=== PATIENT | female | born 1935 | race Caucasian/White ===

== ENCOUNTER 2016-09-27 21:08 | Emergency (ER) | payer OTHER ==
[~2016-09-27] VITALS: Ht 152.4 cm; Wt 54.4 kg
[2016-09-27 21:20] VITALS: BP 130/74
--- NOTE | 2016-09-27 22:00 | NUR ---
PT TAKEN TO BED 4
--- NOTE | 2016-09-27 22:22 | NUR ---
81Y/F PATIENT PRESENTS TO ED WITH C/O LT. SHOULDER PAIN X 1 HRS . PT STATES SLIPPED FROM THE CAR AND LANDED ON LT. SIDE, C/O LT. SIDE PAIN . DENIES N/V/D; SKIN IS PINK/WARM/DRY; AAOX4 WITH EVEN AND STEADY GAIT; LUNGS CLEAR BL; HR EVEN AND REGULAR; PT DENIES ANY FEVER, CP, SOB, OR COUGH AT THIS TIME; PATIENT STATES PAIN OF 7/10 AT THIS TIME; VSS; PATIENT POSITIONED FOR COMFORT; HOB ELEVATED; BEDRAILS UP X2; BED DOWN. ER MD MADE AWARE OF PT STATUS.
--- NOTE | 2016-09-27 22:25 | NUR ---
X-Ray at bedside.
--- NOTE | 2016-09-27 22:28 | NUR ---
Dr. Sarmiento evaluating patient at bedside.
[2016-09-27] MEDS ORDERED: KETOROLAC 60 MG/2 ML VIAL IM ONE (22:45)
[2016-09-27 23:24] VITALS: BP 125/71
--- NOTE | 2016-09-27 23:24 | NUR ---
Patient discharged with v/s stable. Written and verbal after care instructions given and explained. Patient alert, oriented and verbalized understanding of instructions. Ambulatory with steady gait. All questions addressed prior to discharge. ID band removed. Patient advised to follow up with PMD. Rx of TRAMADOL 50 MG given. Patient educated on indication of medication including possible reaction and side effects. Opportunity to ask questions provided and answered.
== END 2016-09-27 23:24 | disposition home or self-care (01) ==
LOC: MED 21:08
DX: M19.012 Primary osteoarthritis, left shoulder (principal); E11.9 Type 2 diabetes mellitus without complications; I10 Essential (primary) hypertension
CPT/HCPCS: 73030; 96372; 99284; J1885; Q0092; 93005

== ENCOUNTER 2020-08-03 14:02 | Emergency (ER) | payer OTHER ==
[~2020-08-03] VITALS: Ht 149.9 cm; Wt 52.6 kg
[2020-08-03 14:09] VITALS: BP 138/95
--- NOTE | 2020-08-03 14:16 | NUR ---
SAMARA BRAN ([facility] [phone]
--- NOTE | 2020-08-03 14:17 | NUR ---
PT TAKEN TO BED 02 VIA WHEELCHAIR.
--- NOTE | 2020-08-03 14:19 | NUR ---
85 Y/O F BROUGHT IN FROM HOME WITH C/C OF RUQ ABDOMINAL PAIN X 2 DAYS. PT STATES RUQ PAIN 9/10, SHARP/INTERMITTENT THAT RADIATES TO HER LOWER BACK. PT ALSO STATES RIGHT LEG CRAMPING/STIFFNESS, (+) FREQUENT URINATION. PT DENIES DYSURIA, PAINFUL URINATION, NAUSEA/VOMITING, CHEST PAIN, SHORTNESS OF BREATH, HEADACHE, BLURRY VISION. PT STATES SHE TOOK T[place]NEOL AT 1000 THIS MORNING WITH LITTLE RELIEF. BOWEL SOUNDS ACTIVE X 4 QUADRANTS. PT STATES LAST BM 08/02 X 2, NORMAL/BROWN. PT PLACED ONTO HORSE RIDING COACH OR INSTRUCTOR, BED LOCKED IN LOWEST POSITION, SIDE RAILS X 1. MED HX: HTN, HYPERLIPDEMIA, DM2 MEDS: UNABLE TO OBTAIN ALLERGIES: SOPHIA INHIBITORS, DIFLOFENAC SX: APPENDECTOMY
--- NOTE | 2020-08-03 14:38 | NUR ---
DR. AVILES IS EVALUATING PATIENT AT BEDSIDE.
[2020-08-03] MEDS ORDERED: MORPHINE SULFATE 2 MG/ML SYR IVP ONE (14:45)
[2020-08-03] MEDS ORDERED: ONDANSETRON 4 MG/2 ML VIAL IVP ONE (14:45)
--- NOTE | 2020-08-03 14:45 | NUR ---
BLOOD SAMPLE COLLECTED VIA IV SITE AND HANDED TO BHASKAR JACOBSON IN ER.
--- NOTE | 2020-08-03 14:52 | NUR ---
PT TRANSPORTED TO RESTROOM VIA WHEELCHAIR FOR URINE SAMPLE. URINE SAMPLE DIP COLLECTED.
[2020-08-03 14:54] LABS: BASOPHILS # (AUTO) 0.1 K/uL (0.00-0.22); BASOPHILS % (AUTO) 1.1 % (0.0-2.0); EOSINOPHILS # (AUTO) 0.4 K/uL (0-0.4); EOSINOPHILS % (AUTO) 3.9 % (0.0-4.0); HEMOGLOBIN 13.5 g/dL (12.0-16.0); LYMPHOCYTES % (AUTO) 42.6 % (20.5-51.1); MEAN CORPUSCULAR HEMOGLOBIN 31 pg (27-31); MEAN CORPUSCULAR HGB CONC 34 g/dL (33-37); MEAN CORPUSCULAR VOLUME 90.7 fL (80-94); MONOCYTES % (AUTO) 11.2 % (1.7-9.3); NEUTROPHILS # (AUTO) 3.8 K/uL (1.8-7.7); NEUTROPHILS % (AUTO) 41.2 % (42.2-75.2); PLATELET COUNT (AUTO) 379 K/uL (140-450); RED BLOOD CELL COUNT(AUTO) 4.41 MIL/uL (4.20-5.40); RED CELL DISTRIBUTION WIDTH 13.7 % (11.6-13.7); WHITE BLOOD COUNT (AUTO) 9.3 K/uL (4.8-10.8)
--- NOTE | 2020-08-03 14:55 | NUR ---
PT ASSISTED BACK ONTO BED VIA WHEELCHAIR. PT PLACED BACK ONTO FISH HOUSEKEEPER. BED LOCKED IN LOWEST POSITION, SIDE RAILS X 1, CALL LIGHT IN REACH.
--- NOTE | 2020-08-03 15:10 | NUR ---
QUALITY CONTROL MANAGER AT BEDSIDE
--- NOTE | 2020-08-03 15:15 | NUR ---
URINE SAMPLE COLLECTED, WALKED TO LAB AND LEFT WITH BHASKAR JAEGER TECH.
--- NOTE | 2020-08-03 15:30 | NUR ---
PATIENT SITTING SEMI-FOWLERS IN POSITION OF COMFORT. CONCIERGE MANAGER IN PLACE, EQUAL CHEST RISE AND FALL, RESPIRATIONS EVEN/UNLABORED. BED LOCKED IN LOWEST POSITION, SIDE RAILS X 1, CALL LIGHT IN REACH.
[2020-08-03 15:31] LABS: APPEARANCE,URINE CLEAR (CLEAR); BILIRUBIN,URINE NEGATIVE (NEGATIVE); BLOOD, URINE NEGATIVE (NEGATIVE); COLOR,URINE YELLOW (YELLOW); LEUKOCYTE ESTERASE ,URINE 1+ (NEGATIVE); NITRITE, URINE NEGATIVE (NEGATIVE); UGLUCOSE NEGATIVE (NEGATIVE)
--- NOTE | 2020-08-03 15:38 | NUR ---
SPOKE WITH DAUGHTER ON PHONE TO TRANSLATE REGARDING CT OF ABDOMEN/PELVIS. PT SIGNATURE OBTAINED.
--- NOTE | 2020-08-03 15:40 | NUR ---
PATIENT STATES NO NAUSEA AND PAIN 6/10 AT THIS TIME. RETAIL ASSISTANT IN PLACE. BED LOCKED IN LOWEST POSITION, SIDE RAILS X1, CALL LIGHT IN REACH.
[2020-08-03 15:43] LABS: RBC,URINE 0-5 /HPF (0-5)
[2020-08-03 15:53] LABS: ALBUMIN 3.8 g/dL (3.4-5.0); ANION GAP 15.8 (8-16); ASPARTATE AMINOTRANSFERASE 25 U/L (15-37); CARBON DIOXIDE 25.5 mmol/L (21-32); CHLORIDE 106 mmol/L (98-107); CREATININE 1.6 mg/dL (0.6-1.3); GLUCOSE 98 mg/dL (74-106); LIPASE 142 U/L (73-393); POTASSIUM 4.3 mmol/L (3.5-5.1); SODIUM SERUM 143 mmol/L (136-145); TOTAL BILIRUBIN 0.3 mg/dL (0.0-1.0); UREA NITROGEN, BLOOD 16 mg/dL (7-18)
--- NOTE | 2020-08-03 16:20 | NUR ---
MANAGEMENT ACCOUNTS MANAGER AT BEDSIDE, NOTIFIED DR. BENITO OF ABNORMAL LABS AND MANAGEMENT ACCOUNTS MANAGER STATES SHE RECEIVED ORDER TO COMPLETE CT ABDOMEN/PELVIS WITHOUT CONTRAST.
--- NOTE | 2020-08-03 16:28 | NUR ---
PT PRESENTS WITH BOTH EYES CLOSED IN SEMI-FOWLERS POSITION OF COMFORT. PT REMAINS ON SWEATBAND PERFORATOR. EQUAL CHEST RISE AND FALL. BED LOCKED IN LOWEST POSITION, SIDE RAILS X 1, CALL LIGHT IN REACH.
--- NOTE | 2020-08-03 16:36 | NUR ---
PT STATES PAIN 5/10 AT THIS TIME. STATES NO NAUSEA. LIGHTS DIMMED PER PT REQUEST. ALL PT NEEDS MET AT THIS TIME. BED LOCKED IN LOWEST POSITION, SIDE RAILS X 1, CALL LIGHT IN REACH.
--- NOTE | 2020-08-03 16:40 | NUR ---
EXTERMINATION SUPERVISOR DISCONNECTED PT FROM SUPERVISOR MAPPING AND TRANSPORTED TO CT VIA [place] BED
--- NOTE | 2020-08-03 16:56 | NUR ---
PATIENT RETURNED FROM CT. PT PLACED BACK ONTO STRIPING MACHINE OPERATOR. BED LOCKED IN LOWEST POSITION, SIDE RAILS X 1, CALL LIGHT IN REACH. ALL PT NEEDS MET AT THIS TIME.
--- NOTE | 2020-08-03 17:36 | NUR ---
PATIENT SITTING SEMI-FOWLERS IN POSITION OF COMFORT. MOTION PICTURE PRINTER IN PLACE, EQUAL CHEST RISE AND FALL, RESPIRATIONS EVEN/UNLABORED. BED LOCKED IN LOWEST POSITION, SIDE RAILS X 1, CALL LIGHT IN REACH.
--- NOTE | 2020-08-03 18:10 | NUR ---
PATIENT STATES SHE IS HUNGRY. DR. BENITO MADE AWARE. PT PROVIDED WITH TUNA SANDWICH, APPLE SAUCE, CUP OF WATER AT BEDSIDE. ALL PT NEEDS MET AT THIS TIME. WALL CLEANER IN PLACE. EQUAL CHEST RISE AND FALL. RESPIRATIONS EVEN/UNLABORED. BED LOCKED IN LOWEST POSITION, SIDE RAILS X 1 WITH TABLE TRAY AT BEDSIDE. CALL LIGHT IN REACH.
[2020-08-03] MEDS ORDERED: cefTRIAXone 1,000 MG VIAL ONE (18:24)
--- NOTE | 2020-08-03 18:30 | NUR ---
PATIENT COMPLETED HALF OF TUNA SANDWICH, APPLE SAUCE, CUP OF WATER. PT PROVIDED WITH ANOTHER CUP OF WATER PER REQUEST. ALL PT NEEDS MET AT THIS TIME. CRANE ENGINEER IN PLACE. BED LOCKED IN LOWEST POSITION, SIDE RAILS X 1, CALL LIGHT IN REACH.
--- NOTE | 2020-08-03 18:42 | NUR ---
JACY (DAUGHTER) CONTACTED VIA TELEPHONE FOR STATUS UPDATE. DAUGHTER NOTIFIED OF CT/US RESULTS AND POSSIBLE DISCHARGE AFTER ABX ADMINISTRATION. JACY REQUESTED TO CALL SAMARA OR JACY REGARDING PRESCRIPTION MEDICATIONS PRIOR TO DISCHARGE. SAMARA (GRAND DAUGHTER) [phone]
[2020-08-03 19:07] VITALS: BP 114/65
--- NOTE | 2020-08-03 19:07 | NUR ---
Patient discharged with v/s stable. Written and verbal after care instructions given and explained. Patient alert, oriented and verbalized understanding of instructions. Ambulatory with steady gait. All questions addressed prior to discharge. ID band removed. Patient advised to follow up with PMD. Rx of KEFLEX, ACETAMINOPHEN given. Patient educated on indication of medication including possible reaction and side effects. Opportunity to ask questions provided and answered.
== END 2020-08-03 19:07 | disposition home or self-care (01) ==
LOC: MED 14:02
DX: R10.31 Right lower quadrant pain (principal); R42 Dizziness and giddiness; R35.0 Frequency of micturition; E11.9 Type 2 diabetes mellitus without complications; I10 Essential (primary) hypertension; E78.00 Pure hypercholesterolemia, unspecified; Z88.6 Allergy status to analgesic agent
CPT/HCPCS: 36415; 74176; 76705; 80053; 81001; 83690; 85025; 87086; 96365; 96375; 99285; J0696; J2270; J2405; J7060